=== PATIENT | female | born 1955 | race Hispanic/Latino ===

== ENCOUNTER → 2018-07-25 | Day surgery (SDC) | payer MEDICARE ==
[2018-07-21 15:27] LABS: BASOPHILS # (AUTO) 0.1 (0.0-0.1); BASOPHILS % 0.7 % (0.0-1.0); EOSINOPHILS # (AUTO) 0.2 (0.0-0.4); EOSINOPHILS % 1.9 % (0.0-6.0); HEMATOCRIT 35.5 % (34.2-44.1); HEMOGLOBIN 12.3 g/dL (12.0-16.0); LYMPHOCYTES # (AUTO) 2.6 (1.0-3.2); LYMPHOCYTES % 29.2 % (18.0-39.1); MEAN CORPUSCULAR HEMOGLOBIN 30.6 pg (28-32); MEAN CORPUSCULAR HGB CONC 34.6 g/dL (31-35); MEAN CORPUSCULAR VOLUME 88.3 fL (81-99); MONOCYTES # (AUTO) 0.7 (0.2-0.8); MONOCYTES % 8.2 % (4.4-11.3); NEUTROPHILS # (AUTO) 5.4 (2.1-6.9); NEUTROPHILS % 59.6 % (38.7-80.0); PLATELET COUNT 312 x10e3/uL (140-360); RED BLOOD COUNT 4.02 x10e6/uL (3.6-5.1); RED CELL DISTRIBUTION WIDTH 13.5 % (11.7-14.4)
[~2018-07-25] MED LIST: ASPIR 8181 MG PO; ATORVASTATIN CA10 MG PO; ATORVASTATIN CA40 MG PO; DEXILANT30 MG PO; FENTANYL CITRATE/PF 100MCG/2 ML INJ ONE; HYOSCYAMINE SULFATE 0.5 MG/ML INJ ONE; LOSARTAN POTASS25 MG PO; MIDAZOLAM HCL 2 MG/2 ML VIAL ONE; PROPOFOL IV EMULSION 10 MG/ML 50 ML VIAL ONE; TRICOR48 MG PO
--- NOTE | 2018-07-25 16:53 | Operative Report ---
DATE OF PROCEDURE: July 25, 2018 REFERRING PHYSICIAN: Dr. Geena Urena. PROCEDURE PERFORMED: Esophagogastroduodenoscopy with esophageal dilatation and biopsies and a colonoscopy. INDICATIONS FOR EGD: Dysphagia, acid reflux. INDICATIONS FOR COLONOSCOPY: Colorectal cancer screening. MEDICATION: Patient was done under MAC. Please see anesthesiologist's note. PROCEDURE: With patient in left lateral decubitus position, the flexible fiberoptic Olympus gastroscope was introduced into the esophagus under direct visualization without any difficulty. There was some patchy erythema noted in distal esophagus. Esophagus was dilated to size 52-Lao Weaver. The scope was then advanced with ease into the stomach and mucosa overlying the antrum revealed some patchy erythema and low-grade edema and biopsies were obtained and sent to stain for H. pylori. There was focal nodularity noted in the distal body posterior wall and biopsies were obtained. The pylorus was of normal contour and shape, was intubated with ease, and the scope was advanced all the way to the 2nd portion of the duodenum. The scope was then withdrawn slowly. Mucosa overlying the proximal 2nd portion and the duodenal bulb appeared to be within normal limits. The scope was then withdrawn back into the stomach and retroflexed and mucosa overlying the fundus and cardia appeared to be within normal limits. The scope was then straightened out. It was subsequently withdrawn. Patient tolerated the procedure well. IMPRESSION 1. Mild distal esophagitis. 2. Esophagus dilated to size 52-Lao Weaver. 3. Gastritis biopsied, biopsy sent to stain for H. pylori. 4. Focal nodularity distal body posterior wall, biopsies obtained. PLAN: Follow up histology. Continue Dexilant 30 mg 1 p.o. q.a.m. a.c. Patient was then turned around and after adequate lubrication of the anal canal, a flexible fiberoptic Olympus colonoscope was inserted into the rectum and advanced all the way to the cecum. Diverticular disease was noted throughout the colon. The scope was then withdrawn slowly and whatever was visualized, the mucosa overlying the cecum appeared to be within normal limits. Other than for diverticulosis, the ascending, transverse, descending, and sigmoid appeared to be within normal limits. The rectum also appeared to be within normal limits. The scope was then retroflexed into the distal rectum and small internal hemorrhoids were noted, none of which was actively bleeding. The scope was then straightened out. It was subsequently withdrawn. Patient tolerated procedure well. IMPRESSION 1. Pandiverticulosis. 2. Internal hemorrhoids none actively bleeding. PLAN: Initiate high-fiber low-fat diet. Initiate high-fiber supplement. Patient might benefit from a followup colonoscopy in 5 to 10 years. Job#: [id number] NADJA cc:GEENA URENA MD
--- OUTSIDE RECORDS SUMMARY | 2018-07-27 09:39 | XMS REPORT ---
Author [facility] Address Unknown Phone Unavailable Care Team Providers Care Electrical And Instrumentation Mechanic Name Role Phone Unavailable Unavailable Problems This patient has no known problems. Allergies, Adverse Reactions, Alerts This patient has no known allergies or adverse reactions. Medications This patient has no known medications. Encounters Start Date/Time End Date/Time Encounter Type Admission Type Attending [facility] Care Facility Care Department Encounter ID 2018-05-14 17:40:31 2018-05-14 17:40:31 Outpatient [facility] [id number] 2018-05-14 00:00:00 2018-05-14 00:00:00 Outpatient [facility] [id number] 2018-05-13 09:23:43 2018-05-13 09:23:43 Outpatient [facility] [id number] 2018-04-22 13:32:57 2018-04-22 13:32:57 Outpatient [facility] [id number] 2018-04-10 14:32:56 2018-04-10 14:32:56 Outpatient [facility] [id number] 2017-11-13 00:00:00 2017-11-13 00:00:00 Outpatient [facility] [id number] 2017-10-03 08:20:26 2017-10-03 08:20:26 Outpatient [facility] [id number] 2017-08-12 00:00:00 2017-08-12 00:00:00 Outpatient [facility] [id number] 2017-07-30 13:18:08 2017-07-30 13:18:08 Outpatient [facility] [id number] 2017-07-24 00:00:00 2017-07-24 00:00:00 Outpatient [facility] [id number] 2017-07-08 09:57:08 2017-07-08 09:57:08 Outpatient [facility] [id number] 2017-06-13 00:00:00 2017-06-13 00:00:00 Outpatient [facility] [id number] 2017-05-23 13:24:02 2017-05-23 13:24:02 Outpatient [facility] [id number] 2017-03-28 00:00:00 2017-03-28 00:00:00 Outpatient [facility] [id number] 2017-02-25 15:04:11 2017-02-25 15:04:11 Outpatient [facility] [id number] 2017-01-31 15:41:15 2017-01-31 15:41:15 Outpatient [facility] [id number] 2016-12-23 00:00:00 2016-12-23 00:00:00 Outpatient [facility] [id number] 2016-12-11 14:32:40 2016-12-11 14:32:40 Outpatient [facility] [id number] 2016-12-11 13:35:53 2016-12-11 13:35:53 Outpatient [facility] [id number] 2016-12-09 09:32:15 2016-12-09 09:32:15 Outpatient [facility] [id number] 2016-12-09 00:00:00 2016-12-09 00:00:00 Outpatient [facility] [id number] 2016-12-04 10:34:43 2016-12-04 10:34:43 Outpatient [facility] [id number]
--- OUTSIDE RECORDS SUMMARY | 2018-07-27 09:39 | XMS REPORT | Clinical Summary ---
Author Author [facility] Organization [facility] Address Unknown Phone Unavailable Care Team Providers Care Environmental Manager Name Role Phone Thomas Muñoz MD PCP Kalia Dang DDS 6 Allergies No Known Allergies Medications End Date Status Medication Sig Dispensed Refills Start Date Active Blood Pressure Test 1 Device by 1 Device 0 Kit-Wrist KitIndications: Misc.(Non-Gilbert 1 HTN (hypertension) g; Combo Route) route daily. Active aspirin (BABY ASPIRIN) 81 Chew 81 mg by 0 mg chewable tablet mouth daily. Active dexlansoprazole Take 1 90 capsule 1 (DEXILANT) 30 mg delayed capsule by 8 release mouth daily. capsuleIndications: Gastroesophageal reflux disease without esophagitis Active fenofibrate Take 1 tablet 90 tablet 1 nanocrystallized (TRICOR) by mouth 8 48 mg tabletIndications: daily. Hypertriglyceridemia Active atorvastatin (LIPITOR) 40 Take 1 tablet 90 tablet 1 mg tabletIndications: by mouth at 8 Hypertriglyceridemia bedtime nightly. Active losartan (COZAAR) 25 mg Take 2 180 tablet 1 tabletIndications: tablets by 8 Essential hypertension mouth daily. with goal blood pressure less than 140/90 03/09/2018 Discontinued losartan (COZAAR) 25 mg Take 1 tablet 90 tablet 1 tabletIndications: by mouth 8 Essential hypertension daily. with goal blood pressure less than 140/90 04/22/2018 Discontinued losartan (COZAAR) 25 mg Take 1 tablet 90 tablet 0 tabletIndications: by mouth 8 Essential hypertension daily. with goal blood pressure less than 140/90 05/21/2018 meclizine (ANTIVERT) 25 Take 1 tablet 21 tablet 0 05/14/201 mg TabIndications: by mouth 3 8 Dizziness times daily for 7 days. Active Problems Problem Noted Date Former heavy cigarette smoker (20-39 per day) starting at age 26, quit 2004 09/06/2013 Hyperlipidemia 09/06/2013 HTN (hypertension) 07/24/2010 S/p hysterectomy for non-cancer cause and all pap normal in the past 07/24/2010 GERD (gastroesophageal reflux disease) 05/31/2009 COPD (chronic obstructive pulmonary disease) 05/31/2009 Encounters Care Team Description Date Type Specialty 06/10/2018 Travel Sandra Vigil, ANNE 06/10/2018 Nurse Triage Angie Baeza MD Telufusi, Abimbola R, PA Dizziness (Primary Dx) 05/14/2018 Same Day Family Practice Thomas Muñoz MD Onyenekwe, Chinedu T, MD Essential hypertension with goal blood pressure less than 140/90 (Primary Dx) 04/22/2018 Office Visit Family Practice Thomas Muñoz MD Oden, Mary A, RN Flu vaccine need (Primary Dx) 04/10/2018 Nurse Only Thomas Muñoz MD Essential hypertension with goal blood pressure less than 140/90 03/09/2018 Refill Family Practice Ran Smith, ANNE 10/21/2017 Nurse Triage Thomas Muñoz MD Follow up 10/03/2017 Lab Appointment Lab Thomas Muñoz MD 07/30/2017 Ancillary Radiology Procedure after 07/26/2017 Immunizations Name Dates Previously Given Next Due Influenza A (H1N1) Vac 05/31/2009 Injection Influenza Vaccine 04/12/2016, 2015, 04/25/2014, 06/04/2013, 04/17/2012, 04/01/2011 (Deferred: Unavailable-Patient to return for vaccine later), 04/20/2009, 05/04/2008, 07/21/2007, 05/21/2006 Influenza Vaccine, 05/23/2017 Seasonal, Injectable Influenza, 04/10/2018 Vaccine<FLUCELVAX>(Multi- Dose) Pneumoccoccal 05/31/2009 Pneumococcal 13-valent 03/13/2015 conj 0.5 mL injection Tdap Tetanus, diphtheria, 08/09/2011, 05/31/2009 (Deferred: acellular pertussis Unavailable-Patient to return for vaccine later) Vaccine Varicella Vaccine Adult 05/18/2014 in Clinic Family History Medical History Relation Name Comments Arthritis Father Diabetes Father Pulmonary Father Arthritis Mother Diabetes Mother Heart Mother [place] Relation Name Status Comments Father EMPHYSEMA (Age 72) Mother Alive Social History Date Tobacco Use Types Packs/Day Years Used Quit: 05/21/2004 Former Smoker Smokeless Tobacco: Never Used Tobacco Cessation: Counseling Given: No Alcohol Use Drinks/Week oz/Week Comments No Sex Assigned at Date Recorded Not on file Industry Job Start Date Occupation Not on file Not on file Not on file Travel End Travel History Travel Start No recent travel history available. Last Filed Vital Signs Time Taken Vital Sign Reading 05/14/2018 5:43 PM GENERAL PRACTITIONER Blood Pressure 136/56 05/14/2018 5:43 PM GENERAL PRACTITIONER Pulse 71 05/14/2018 5:43 PM GENERAL PRACTITIONER Temperature 36.6 C (97.8 F) 05/14/2018 5:43 PM GENERAL PRACTITIONER Respiratory Rate 18 05/14/2018 5:43 PM GENERAL PRACTITIONER Oxygen Saturation 96% - Inhaled Oxygen - Concentration 05/14/2018 5:43 PM GENERAL PRACTITIONER Weight 74.2 kg (163 lb 9.6 oz) 04/22/2018 1:33 PM GENERAL PRACTITIONER Height 152.4 cm (5') 04/22/2018 1:33 PM GENERAL PRACTITIONER Body Mass Index 31.95 Plan of Treatment Health Maintenance Due Date Last Done Comments Colorectal Cancer Scrn 01/31/2018 01/31/2017, 02/09/2016, 11/09/2009, Annual (FIT/FOBT) Age 48 Additional history exists to 73 Breast Cancer Scrn 07/30/2018 07/30/2017, 04/23/2016, 12/30/2014, (Yearly) Additional history exists IMM Pneumococcal Age 63 Completed 05/31/2009 and Up Procedures Comments Procedure Name Priority Date/Time Associated Diagnosis LIVER PROFILE Routine 05/13/2018 Essential hypertension 9:21 AM GENERAL PRACTITIONER with goal blood pressure less than 140/90 BASIC METABOLIC PANEL Routine 05/13/2018 Essential hypertension 9:21 AM GENERAL PRACTITIONER with goal blood pressure less than 140/90 LIPID PROFILE Routine 05/13/2018 Essential hypertension 9:21 AM GENERAL PRACTITIONER with goal blood pressure less than 140/90 MICROALBUM, URINE Routine 05/13/2018 Essential hypertension 9:21 AM GENERAL PRACTITIONER with goal blood pressure less than 140/90 CBC/DIFF Routine 05/13/2018 Essential hypertension 9:21 AM GENERAL PRACTITIONER with goal blood pressure less than 140/90 COMPREHENSIVE METABOLIC Routine 10/03/2017 Follow up PANEL(DBIL NOT INCLUDED) 8:18 AM CDT LIPID PROFILE Routine 10/03/2017 Follow up 8:18 AM CDT HEMOGLOBIN A1C Routine 10/03/2017 Follow up 8:18 AM CDT MAMMOGRAM BILAT SCREEN Routine 07/30/2017 Follow up DIGITAL 2:08 PM GENERAL PRACTITIONER after 07/26/2017 Results * MICROALBUM, URINE (05/13/2018 9:21 AM GENERAL PRACTITIONER) Microalbum, <0.7 0.0 - 29.0 mg/dL BT MAIN-STATION Random 1 Creatinine, Ur 107.3 20 - 320 mg/dL BT MAIN-STATION 1 Urine Unable to calculate, 0 - 29 mg/g UCR BT [facility]ATION Microalbumin parameters incomplete 3 Comment: To minimize intra-individual variation, analysis of three random urine samples collected over the course of a week is recommended. Performing Organization Address [facility] Phone Number MISYS BT [facility] 1 BT MAIN-STATION 3 * LIVER PROFILE (05/13/2018 9:21 AM GENERAL PRACTITIONER) T Protein 7.5 6.0 - 8.3 g/dL BT MAIN[facility]STATION 1 Albumin 4.2 3.7 - 5.3 g/dL BT MAIN[facility]ATION 1 T Bilirubin 0.4 0.2 - 1.2 mg/dL BT MAIN-STATION 1 Alk Phos 77 34 - 104 U/L BT MAIN-STATION 1 AST 15 13 - 39 U/L BT MAIN[facility]STATION 1 ALT 19 7 - 52 U/L BT MAIN[facility]STATION 1 D Bilirubin 0.1 0.0 - 0.2 mg/dL BT MAIN[facility]ATION 1 Specimen Blood Performing Organization Address [facility] Phone Number MISYS BT [facility] 1 * LIPID PROFILE (05/13/2018 9:21 AM GENERAL PRACTITIONER) Only the most recent of 2 results within the time period is included. Cholesterol 254 mg/dL BT [facility] Comment: 1 REFERENCE RANGE: Desirable: <200 mg/dL Borderline: 200-240 mg/dL High Risk: >240 mg/dL Triglyceride 151 (H) <150 mg/dL BT [facility] Comment: 1 REFERENCE RANGE: Normal: <150 mg/dL Borderline High: 150-199 mg/dL High: 200-499 mg/dL Very High: >ws=293 mg/dL HDL 54 mg/dL BT [facility] Comment: 1 Increased CHD risk: <40 mg/dL Decreased CHD risk: >60 mg/dL LDL 170 mg/dL BT [facility]ATION Comment: 1 REFERENCE RANGE: Optimal: <100 mg/dL Near Optimal: 100-129 mg/dL Borderline High: 130-159 mg/dL High: 160-189 mg/dL Very High: >cp=704 mg/dL Specimen Blood Performing Organization Address City/State/Zipcode Phone Number MISYS BT MAIN-STATION 1 * CBC/DIFF (05/13/2018 9:21 AM GENERAL PRACTITIONER) WBC 7.8 4.5 - 11.0 K/uL BT MAIN[facility]STATION 2 RBC 4.57 4.20 - 5.40 M/uL BT MAIN[facility] 2 Hemoglobin 14.0 12.0 - 16.0 g/dL BT MAIN[facility] 2 Hematocrit 41.8 37.0 - 47.0 % BT MAIN[facility]ATION 2 MCV 92 82 - 92 fL BT MAIN[facility]STATION 2 MCH 30.6 27.0 - 32.0 pg BT MAIN-STATION 2 MCHC 33.5 32.0 - 36.0 g/dL BT [facility] 2 RDW 44.9 36.4 - 46.3 fL BT MAIN[facility]ATION 2 Platelet 361 150 - 400 K/uL BT MAIN[facility]STATION 2 Mean Platelet 10.0 9.4 - 12.4 fL BT [facility]IN[facility] Volume 2 Percent NRBC 0.0 BT MAIN-STATION 2 Absolute NRBC 0.00 BT MAIN-STATION 2 Neutrophil 63.5 34.0 - 70.0 % BT MA[facility] 2 Lymphocyte 27.7 20.0 - 50.0 % BT [facility] 2 Monocyte 6.0 5.0 - 12.0 % BT MAIN[facility]ATION 2 Eosinophil 1.5 0.7 - 5.0 % BT MAIN[facility] 2 Basophil 0.8 0.1 - 1.2 % BT MAIN[facility]ATION 2 Pct Immat Gran 0.5 0.0 - 0.5 BT MAIN-STATION 2 Neutrophil, Abs 4.93 1.56 - 6.13 K/uL BT MAIN-STATION 2 Lymphocyte, Abs 2.15 1.18 - 3.74 K/uL BT MAIN[facility]STATION 2 Monocyte, Abs 0.47 (H) 0.24 - 0.36 K/uL BT MAIN-STATION 2 Eosinophil, Abs 0.12 0.04 - 0.36 K/uL BT MAIN-STATION 2 Basophil, Abs 0.06 0.01 - 0.08 K/uL BT MAIN-STATION 2 Absol Immat 0.04 (H) 0.00 - 0.03 K/uL BT MAIN-STATION Gran 2 Specimen Blood Performing Organization Address [facility] Phone Number MISYS BT [facility] 2 * BASIC METABOLIC PANEL (05/13/2018 9:21 AM GENERAL PRACTITIONER) CO2 26 21 - 31 mmol/L BT MAIN[facility]ATION 1 Chloride 104 98 - 107 mmol/L BT MAIN[facility]ATION 1 Potassium 4.7 3.5 - 5.1 mmol/L BT MAIN[facility]ATION 1 Sodium 141 136 - 145 mmol/L BT [facility]IN[facility]ATION 1 Glucose 83 70 - 110 mg/dL BT [facility] 1 Urea Nitrogen 18 7 - 25 mg/dL BT [facility] 1 Creatinine 0.60 0.6 - 1.2 mg/dL BT [facility] 1 Anion Gap 11 BT [facility]IN[facility] 1 Calcium 9.6 8.6 - 10.3 mg/dL BT [facility]IN[facility] 1 GFR, Estimated >60 mL/min/1.73 m2 BT MAIN[facility] 1 GFR, Estim, >60 mL/min/1.73 m2 BT [facility]IN[facility] Afr-Am 1 Specimen Blood Performing Organization Address City/[facility] Phone Number MISYS BT [facility] 1 * HEMOGLOBIN A1C (10/03/2017 8:18 AM CDT) Hemoglobin A1c 5.7 4.3 - 6.1 % BT DIAGNOSTIC IMMUNOLOGY Est Average 116.9 mg/dL BT DIAGNOSTIC Gluc IMMUNOLOGY Specimen Blood Performing Organization Address [facility] Phone Number MISYS BT DIAGNOSTIC IMMUNOLOGY * COMPREHENSIVE METABOLIC PANEL(DBIL NOT INCLUDED) (10/03/2017 8:18 AM CDT) Albumin 3.7 3.7 - 5.3 g/dL BT MAIN-STATION 3 Calcium 9.1 8.6 - 10.3 mg/dL BT MAIN-STATION 3 CO2 28 21 - 31 mmol/L BT MAIN-STATION 3 Chloride 106 98 - 107 mmol/L BT MAIN-STATION 3 Creatinine 0.70 0.6 - 1.2 mg/dL BT MAIN[facility]STATION 3 Glucose 96 70 - 110 mg/dL BT MAIN[facility]STATION 3 Alk Phos 62 34 - 104 U/L BT MAIN-STATION 3 Potassium 4.4 3.5 - 5.1 mmol/L BT MAIN-STATION 3 Sodium 142 136 - 145 mmol/L BT MAIN-STATION 3 ALT 13 7 - 52 U/L BT MAIN-STATION 3 AST 11 (L) 13 - 39 U/L BT MAIN-STATION 3 Urea Nitrogen 16 7 - 25 mg/dL BT MAIN-STATION 3 T Bilirubin 0.4 0.2 - 1.2 mg/dL BT MAIN-STATION 3 T Protein 6.7 6.0 - 8.3 g/dL BT MAIN-STATION 3 GFR, Estimated >60 mL/min/1.73 m2 BT MAIN-STATION 3 GFR, Estim, >60 mL/min/1.73 m2 BT MAIN-STATION Afr-Am 3 Anion Gap 8 BT MAIN-STATION 3 Specimen Blood Performing Organization Address City/State/Zipcode Phone Number MISYS BT MAIN-STATION 3 * MAMMOGRAM BILAT SCREEN DIGITAL (07/30/2017 2:08 PM GENERAL PRACTITIONER) Impressions Performed At IMPRESSION: BENIGN SMS There is no mammographic evidence of malignancy. A 1 year screening mammogram is recommended. I have reviewed the study and agree with the findings in the report. This document has been electronically signed. Alma Atkinson M.D. apb,ct/penrad:07/30/2017 14:24:30 Tie Up Worker: Ms. Nereida Nicole RT(R)(M), [facility] letter sent: Benign Exam Mammogram BI-RADS: 2 Benign G0202 Z12.31 Narrative Performed At #[id number] - MAMMOGRAM BILAT SCREEN DIGITAL SMS BILATERAL DIGITAL SCREENING MAMMOGRAM WITH CAD: 07/30/2017 CLINICAL: Screening for malignancy. Comparison is made to exams dated:04/23/2016, 12/30/2014, 01/13/2014, 08/06/2012, and 11/19/2010 [facility]. The tissue of both breasts is heterogeneously dense. This may lower the sensitivity of mammography. Current study was also evaluated with a Computer Aided Detection (CAD) system. There are benign calcifications in the left breast. No significant masses, calcifications, or other findings are seen in either breast. There has been no significant interval change. Procedure Note Interface, Rad/Mammog In - 07/31/2017 9:06 AM GENERAL PRACTITIONER #[id number] - MAMMOGRAM BILAT SCREEN DIGITAL BILATERAL DIGITAL SCREENING MAMMOGRAM WITH CAD: 07/30/2017 CLINICAL: Screening for malignancy. Comparison is made to exams dated: 04/23/2016, 12/30/2014, 01/13/2014, 08/06/2012, and 11/19/2010 [facility]. The tissue of both breasts is heterogeneously dense. This may lower the sensitivity of mammography. Current study was also evaluated with a Computer Aided Detection (CAD) system. There are benign calcifications in the left breast. No significant masses, calcifications, or other findings are seen in either breast. There has been no significant interval change. IMPRESSION IMPRESSION: BENIGN There is no mammographic evidence of malignancy. A 1 year screening mammogram is recommended. I have reviewed the study and agree with the findings in the report. This document has been electronically signed. Alma Atkinson M.D. apb,ct/penrad:07/30/2017 14:24:30 Tie Up Worker: Ms. Nereida Nicole RT(R)(M), [facility] letter sent: Benign Exam Mammogram BI-RADS: 2 Benign G0202 Z12.31 Performing Organization Address City/State/Zipcode Phone Number SMS after 07/26/2017 Insurance Type Payer Benefit Subscriber ID Effective Phone Address Plan / Dates Group [facility] xxxxxxxxx 2018- [phone] [address] MEDICARE Present [id number] [place] [address] [place] MEDICAID [id number] xxxxxxxxx 2018- [phone] QUALIFIED Present 2004 MEDICARE [place], [place] BENEF[place]IAR [id number] Y (Work)
== END | disposition home or self-care (01) ==
LOC: OR 07:55
PROVIDERS: ATTEND Internal Medicine Gastroenterology
DX: Z12.11 Encounter for screening for malignant neoplasm of colon (principal); K29.70 Gastritis, unspecified, without bleeding; K20.9 Esophagitis, unspecified; K21.9 Gastro-esophageal reflux disease without esophagitis; K31.89 Other diseases of stomach and duodenum; K57.30 Diverticulosis of large intestine without perforation or abscess without bleeding; K64.8 Other hemorrhoids; J44.9 Chronic obstructive pulmonary disease, unspecified; I10 Essential (primary) hypertension; E78.5 Hyperlipidemia, unspecified; M19.90 Unspecified osteoarthritis, unspecified site; Z01.810 Encounter for preprocedural cardiovascular examination; Z01.812 Encounter for preprocedural laboratory examination; Z79.82 Long term (current) use of aspirin; Z68.31 Body mass index [BMI] 31.0-31.9, adult
CPT/HCPCS: 43239; 43450; G0121; 36415; 45378; 85025; 88305; 88312; 93005; J1980; J2250